=== PATIENT | male | born 1955 | race Caucasian/White ===

== ENCOUNTER → 2020-04-08 | Outpatient (CLI) | payer OTHER ==
[~2020-04-08] MED LIST: INSU100I13 SC; METF500T17 PO; buprenorphine SL
[2020-04-08 14:40] LABS: ALBUMIN 4.2 g/dL (3.4-5.0); ANION GAP 3 mmol/L (5-15); CALCIUM 8.8 mg/dL (8.5-10.1); CHLORIDE 104 mmol/L (98-107)
[2020-04-08 14:43] LABS: ALANINE AMINOTRANSFERASE 19 U/L (12-78); ALKALINE PHOSPHATASE 83 U/L (45-117); BILIRUBIN,TOTAL 0.9 mg/dL (0.2-1.0); CREATININE 0.89 mg/dL (0.7-1.3); TOTAL PROTEIN 7.4 g/dL (6.4-8.2)
== END | disposition home or self-care (01) ==
LOC: STAR 13:26
PROVIDERS: ATTEND Otolaryngology
DX: Z01.818 Encounter for other preprocedural examination (principal); D38.0 Neoplasm of uncertain behavior of larynx; R49.0 Dysphonia; K21.9 Gastro-esophageal reflux disease without esophagitis; H61.22 Impacted cerumen, left ear; H90.3 Sensorineural hearing loss, bilateral; Z20.822 Contact with and (suspected) exposure to COVID-19
CPT/HCPCS: 80053; 87635; 93005

== ENCOUNTER 2020-04-14 05:58 | Day surgery (SDC) | payer OTHER ==
[2020-04-08 13:50] VITALS: BP 165/81
[~2020-04-14] VITALS: Ht 198.1 cm; Wt 82.0 kg
[2020-04-14] MEDS ORDERED: OXYMETAZOLINE NASAL SPRAY 0.05%,30ML ONE (06:19)
[2020-04-14] MEDS ORDERED: LACTATED RINGERS 1,000 ML IV SCH (06:30)
[2020-04-14] MEDS ORDERED: CHLORHEXIDINE 15 ML UDC MM ONE (06:30)
[2020-04-14] MEDS ORDERED: FENTANYL PF 250 MCG/5ML ONE (07:01)
[2020-04-14] MEDS ORDERED: ROCURONIUM 10 MG/ML,10ML ONE (07:18)
[2020-04-14] MEDS ORDERED: ESMOLOL 100 MG/10 ML ONE (07:18)
[2020-04-14] MEDS ORDERED: SUCCINYLCHOLINE 20 MG/ML, 10ML ONE (07:18)
[2020-04-14] MEDS ORDERED: CEFAZOLIN 1,000 MG ONE (07:18)
[2020-04-14] MEDS ORDERED: DEXAMETHASONE 4 MG/ML, 5ML ONE (07:18)
[2020-04-14] MEDS ORDERED: PROPOFOL 10 MG/ML, 20ML ONE (07:18)
[2020-04-14] MEDS ORDERED: ONDANSETRON 2MG/ML, 2ML ONE (07:18)
[2020-04-14] MEDS ORDERED: EPINEPHRINE 1 MG/ML, 1ML ONE ×2 (07:22→07:23)
[2020-04-14] MEDS ORDERED: LIDOCAINE/PF 1%, 30ML ONE (07:22)
[2020-04-14] MEDS ORDERED: KETOROLAC 30 MG/1 ML ONE (08:27)
[2020-04-14] MEDS ORDERED: FENTANYL PF 100 MCG/2ML ONE (08:27)
[2020-04-14] MEDS ORDERED: EPHEDRINE 50 MG/ML, 1ML IVPush PRN (08:30)
[2020-04-14] MEDS ORDERED: PROMETHAZINE 25 MG/ML, 1ML IVPush PRN (08:30)
[2020-04-14] MEDS ORDERED: MEPERIDINE/PF 25MG/0.5ML IVPush PRN (08:30)
[2020-04-14] MEDS ORDERED: ONDANSETRON 2MG/ML, 2ML IVPush PRN (08:30)
[2020-04-14] MEDS ORDERED: KETOROLAC 30 MG/1 ML IVPush ONE (08:30)
[2020-04-14] MEDS ORDERED: LORazepam 2 MG/ML, 1ML IVPush PRN (08:30)
[2020-04-14] MEDS ORDERED: ACETAMINOPHEN 325 MG TABLET PO PRN (08:30)
[2020-04-14] MEDS ORDERED: HYDROmorphone 1 MG/ML, 1ML INJ IVPush PRN (08:30)
[2020-04-14] MEDS ORDERED: METHOCARBAMOL 1,000 MG in DEXTROSE 5% 100 ML IV PRN (08:30)
[2020-04-14] MEDS ORDERED: hydrALAzine 20 MG/ML, 1ML IV PRN (08:30)
[2020-04-14] MEDS ORDERED: LABETALOL 5MG/ML, 20ML IV PRN (08:30)
[2020-04-14] MEDS ORDERED: OXYcodone 5 MG/5 ML ORAL.SOL UDC PO PRN (08:30)
[2020-04-14] MEDS: FENTANYL PF 100 MCG/2ML IV PRN ×3 (08:32→08:59)
[2020-04-14] MEDS ORDERED: ACETAMINOPHEN 650 MG/20.3 ML UDC ONE (08:41)
[2020-04-14] MEDS ORDERED: OXYcodone 5 MG/5 ML ORAL.SOL UDC ONE (08:42)
== END 2020-04-14 11:00 | disposition home or self-care (01) ==
LOC: OUT 05:58
PROVIDERS: ATTEND Otolaryngology
DX: J38.3 Other diseases of vocal cords (principal); D14.1 Benign neoplasm of larynx; E11.9 Type 2 diabetes mellitus without complications; K21.9 Gastro-esophageal reflux disease without esophagitis; H61.22 Impacted cerumen, left ear; H90.3 Sensorineural hearing loss, bilateral; F17.210 Nicotine dependence, cigarettes, uncomplicated; Z79.899 Other long term (current) drug therapy; Z88.8 Allergy status to other drugs, medicaments and biological substances
CPT/HCPCS: 31541; 82962; 88305; 88331; J0171; J0330; J0690; J1100; J1885; J2405; J2704; J3010; J7120